=== PATIENT | female | born 1960 | race Caucasian/White ===

== ENCOUNTER 2016-06-11 09:31 | Emergency (ER) | payer OTHER ==
[~2016-06-11] VITALS: Ht 165.1 cm; Wt 78.0 kg
[~2016-06-11 09:31] MED LIST: ADVAI100I PO; ALBU8I INH; CLON1TAB PO; DUONI NEB; SPIRCAP INH; TRAZ300T2 PO
[2016-06-11 09:37] VITALS: BP 134/76; PULSE 83; RESP 17; TEMP 98.3; O2SAT 99
--- NOTE | 2016-06-11 10:05 | PD ---
HPI Chief Complaint: Fall Time Seen by Provider: 09:52 Travel History International Travel<30 days: No Contact w/Intl Traveler<30days: No Traveled to known affect area: No History of Present Illness HPI The patient was seen and examined in the presence of the nurse. This patient complains of pain in her right foot. 5 days ago she tripped and fell over a tree stump and injured her right foot. She has pain with weightbearing. She also hit her right low back on a table. Symptoms severity is moderate. No head injury. PFSH Past Medical History Arthritis: Yes Asthma: Yes Anxiety: Yes Depression: Yes Cancer: Yes (SKIN) Cardiovascular Problems: Yes High Cholesterol: Yes COPD: Yes Diminished Hearing: No Endocrine: No GERD: Yes Genitourinary: No Hypertension: Yes (states do not take meds) Immune Disorder: No Musculoskeletal: Yes (FX RIBS ) Psychiatric: Yes (PTSD) Reproductive: No Respiratory: Yes (copd) Immunizations Current: Yes Pneumonia: Yes Menopausal: Yes : 1 Para: 1 Past Surgical History Abdominal Surgery: Yes Appendectomy: Yes Gynecologic Surgery: Yes (hysterectomy) Hysterectomy: Yes Oral Surgery: Yes (TONSILECTOMY) Tonsillectomy: Yes Other Surgery: Yes (LT ARM SKIN CANCER) Social History Alcohol Use: Yes (occas. wine) Tobacco Use: Yes (1- 2ppd cigs) Substance Use: No Allergies-Medications (Allergen,Severity, Reaction): Coded Allergies: Codeine (Verified Allergy, Severe, HIVES, SOB, 06/11/16) Penicillin (Verified Allergy, Severe, HIVES, SOB, 06/11/16) Reported Meds & Prescriptions Reported Meds & Active Scripts Active Reported Spiriva Handihaler (Tiotropium Inh) 18 Mcg Cap 18 Mcg INH DAILY 1 capsule = 18 mcg Ventolin Hfa 18 GM Inh (Albuterol Sulfate) 90 Mcg/Act Aer 2 Puff INH Q4H PRN Clonazepam 1 Mg Tab 1 Mg PO TID Trazodone (Trazodone HCl) 100 Mg Tab 200 Mg PO HS Review of Systems General / Constitutional: No: Fever HENT: No: Headaches Cardiovascular: No: Chest Pain or Discomfort Respiratory: No: Shortness of Breath Physical Exam Narrative SKIN: Inspection shows no rash or ulcers. Palpation shows no induration or nodules. Psych: Normal mood and affect. Normal insight and judgment. Back: No midline tenderness. No bruising or swelling Right foot: There is a bit of ecchymosis at the proximal right fourth toe. There is some diffuse tenderness over the entire foot. No open wound. No ankle tenderness Data Data Last Documented VS Vital Signs Date Time Temp Pulse Resp B/P Pulse Ox O2 Delivery O2 Flow Rate FiO2 06/11/16 10:07 16 99 Room Air 06/11/16 09:37 98.3 83 134/76 Orders Foot, Complete ([id number]) (06/11/16 ) MDM Medical Decision Making Medical Screen Exam Complete: Yes Emergency Medical Condition: Yes Medical Record Reviewed: Yes Differential Diagnosis Foot fracture, contusion, sprain Narrative Course I have reviewed the patient's electronic medical record. She is a very frequent visitor for COPD I reviewed her right foot x-rays show fracture of the proximal fourth toe Doe taping was applied to the right fourth and third toe as well as postop shoe applied Recommend podiatry follow-up Diagnosis Primary Impression: Toe fracture, right Additional Instructions: Follow-up with podiatry Med/Other Pt SpecificInfo: Other Disposition: 01 DISCHARGE HOME Condition: Stable Sky Duarte MD Jun 11, 2016 10:05
[2016-06-11] MEDS ORDERED: TRAZ100T4 PO (10:10)
[2016-06-11] MEDS ORDERED: CLON1TAB PO (10:10)
--- NOTE | 2016-06-11 10:24 | RADHPO ---
EXAM DATE/TIME: 06/11/2016 10:07 [facility] COMPARISON: No previous studies available for comparison. INDICATIONS : Right foot/toe pain/bruising post stubbing them on a tree stump. MEDICAL HISTORY : Hypertension. Hypercholesterolemia. Chronic obstructive pulmonary disease. Asthma. GERD. Arthriti s. SURGICAL HISTORY : Appendectomy. Hysterectomy. Tonsillectomy. ENCOUNTER: Initial ACUITY: 4 - 6 days PAIN SCORE: 10/10 LOCATION: Right foot/toes FINDINGS: There is a nondisplaced transverse fracture at the base of the proximal phalanx of the fourth toe. No intra-articular extension is present. Joint spaces are maintained. An inferior calcaneal spur is pre sent. CONCLUSION: 1. Fracture proximal phalanx fourth toe Rad Casey MD on June 11, 2016 at 10:21 Board Certified Radiologist. This report was verified electronically.
[2016-06-11] MEDS ORDERED: SPIRCAP INH (10:35)
[2016-06-11] MEDS ORDERED: VENTAER INH (10:35)
== END 2016-06-11 11:20 | disposition home or self-care (01) ==
LOC: PHED 09:31
DX: S92.511A Displaced fracture of proximal phalanx of right lesser toe(s), initial encounter for closed fracture (principal); M19.90 Unspecified osteoarthritis, unspecified site; J44.9 Chronic obstructive pulmonary disease, unspecified; I10 Essential (primary) hypertension; F17.210 Nicotine dependence, cigarettes, uncomplicated; W18.09XA Striking against other object with subsequent fall, initial encounter
CPT/HCPCS: 73630; 99283; L3260

== ENCOUNTER 2016-08-11 17:30 | Emergency (ER) | payer OTHER ==
[~2016-08-11] VITALS: Ht 165.1 cm; Wt 78.1 kg
[~2016-08-11 17:30] MED LIST changes: -ADVAI100I PO; -ALBU8I INH; -DUONI NEB; +TRAZ100T4 PO; -TRAZ300T2 PO; +VENTAER INH
[2016-08-11 17:32] VITALS: BP 131/75; PULSE 104; RESP 16; TEMP 98.7; O2SAT 97
--- NOTE | 2016-08-11 18:39 | PD ---
HPI Chief Complaint: Skin Problem Time Seen by Provider: 18:35 Travel History International Travel<30 days: No Contact w/Intl Traveler<30days: No Traveled to known affect area: No History of Present Illness HPI 56-year-old female presents to the ED for evaluation 2 week history of pruritic rash. Patient states she first noticed on her back now spread to her abdomen, thighs. She thinks it might be scabies. She states that she has been washing her linens in hot water, but the rash has not improved. Denies fever, chills, cough or cold symptoms, abdominal pain, nausea, vomiting. PFSH Past Medical History Arthritis: Yes Asthma: Yes Anxiety: Yes Depression: Yes Cancer: Yes (SKIN) Cardiovascular Problems: Yes High Cholesterol: Yes COPD: Yes Diminished Hearing: No Endocrine: No GERD: Yes Genitourinary: No Hypertension: Yes (states do not take meds) Immune Disorder: No Musculoskeletal: Yes (FX RIBS ) Psychiatric: Yes (PTSD) Reproductive: No Respiratory: Yes (copd) Immunizations Current: Yes Pneumonia: Yes Influenza Vaccination: Yes ?: Not Menopausal: Yes : 1 Para: 1 Past Surgical History Abdominal Surgery: Yes Appendectomy: Yes Gynecologic Surgery: Yes (hysterectomy) Hysterectomy: Yes Oral Surgery: Yes (TONSILECTOMY) Tonsillectomy: Yes Other Surgery: Yes (LT ARM SKIN CANCER) Social History Alcohol Use: Yes (RARELY) Tobacco Use: Yes (1/2 PPD ) Substance Use: No Allergies-Medications (Allergen,Severity, Reaction): Coded Allergies: Codeine (Verified Allergy, Severe, HIVES, SOB, 08/11/16) Penicillin (Verified Allergy, Severe, HIVES, SOB, 08/11/16) Reported Meds & Prescriptions Reported Meds & Active Scripts Active Permethrin Topical (Permethrin) 5% Cream 1 Applic TOPICAL ONCE apply head to toe and leave on for 8-14 hours before washing off. Treat a second time 1 week following first treatment. Reported Clonazepam 1 Mg Tab 1 Mg PO TID Trazodone (Trazodone HCl) 100 Mg Tab 200 Mg PO HS Review of Systems Except as stated in HPI: all other systems reviewed are Neg Physical Exam Narrative GENERAL: Well-nourished, well-developed white female in no acute distress. SKIN: Warm and dry. Erythematous maculopapular blanching rash distributed around the waist, on the back, tops of the thighs, interdigital spaces. Consistent with scabies. HEAD: Normocephalic. EYES: No scleral icterus. No injection or drainage. NECK: Supple, trachea midline. No JVD or lymphadenopathy. CARDIOVASCULAR: Regular rate and rhythm without murmurs, gallops, or rubs. RESPIRATORY: Breath sounds equal bilaterally. No accessory muscle use. GASTROINTESTINAL: Abdomen soft, non-tender, nondistended. MUSCULOSKELETAL: No cyanosis, or edema. BACK: Nontender without obvious deformity. No CVA tenderness. Data Data Last Documented VS Vital Signs Date Time Temp Pulse Resp B/P Pulse Ox O2 Delivery O2 Flow Rate FiO2 08/11/16 17:54 104 16 08/11/16 17:32 98.7 131/75 97 Orders Hydroxyzine Hcl Inj (Vistaril Inj) (08/11/16 19:00) MDM Medical Decision Making Medical Screen Exam Complete: Yes Emergency Medical Condition: Yes Differential Diagnosis scabies versus bedbugs versus contact dermatitis versus insect bites versus other Narrative Course 56-year-old female presents to the ED for evaluation 2 week history of pruritic rash. Patient states she first noticed on her back now spread to her abdomen, thighs. She thinks it might be scabies. Vitals reviewed. Physical exam reveals linens in hot water, but the rash has not improved. Denies fever, chills, cough or cold symptoms, abdominal pain, nausea, vomiting. Erythematous maculopapular blanching rash distributed around the waist, on the back, tops of the thighs, interdigital spaces. Consistent with scabies. She was prescribed permethrin, instructed in its proper use. She was administered a dose of IM Vistaril before discharge. She is instructed to treat twice at 7 day interval, follow-up with primary care. She indicated understanding of instructions. She is stable and discharged home. Diagnosis Primary Impression: Scabies infestation Referrals: Primary Care Physician Patient Instructions: General Instructions, Scabies (ED) Additional Instructions: Lukewarm showers to avoid worsening of itching. Apply permethrin cream head to toe and leave on for 8-14 hours before washing off. Apply a second treatment in one week. Itching may last 4-5 days after treatment. Follow-up with the primary care provider. Return to the ED for any urgent or emergent medical condition. Med/Other Pt SpecificInfo: Prescription(s) given Scripts Permethrin Topical 5% Cream1 Applic TOPICAL ONCE #4 TUBE Ref 0 apply head to toe and leave on for 8-14 hours before washing off. Treat a second time 1 week following first treatment. Prov:Yuri Almonte MD 08/11/16 Disposition: 01 DISCHARGE HOME Condition: Stable Ela Haddad Aug 11, 2016 18:39
[2016-08-11] MEDS ORDERED: PERM5CRE TOPICAL (18:41)
[2016-08-11] MEDS ORDERED: hydrOXYzine HCL 50 MG/ML VIAL IM ONE (19:00)
== END 2016-08-11 18:58 | disposition home or self-care (01) ==
LOC: PHEFT 17:30
DX: B86 Scabies (principal); E78.00 Pure hypercholesterolemia, unspecified; J44.9 Chronic obstructive pulmonary disease, unspecified; F17.210 Nicotine dependence, cigarettes, uncomplicated
CPT/HCPCS: 99282; J3410

== ENCOUNTER 2016-09-11 09:54 | Emergency (ER) | payer OTHER ==
[~2016-09-11] VITALS: Ht 165.1 cm; Wt 77.4 kg
[~2016-09-11 09:54] MED LIST changes: +PERM5CRE TOPICAL; -SPIRCAP INH; -VENTAER INH
[2016-09-11 10:08] VITALS: BP 119/77; PULSE 110; RESP 26; TEMP 98.4; O2SAT 100
--- NOTE | 2016-09-11 10:28 | PD ---
HPI Chief Complaint: Respiratory Symptoms Time Seen by Provider: 10:22 Travel History International Travel<30 days: No Contact w/Intl Traveler<30days: No Traveled to known affect area: No History of Present Illness HPI This 56-year-old female is complaining of shortness of breath. She has a history of COPD. 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 She has smoked 5 cigarettes a day area she has been coughing and has been short of breath for several days. She is not on any medication at this time. She has no history of heart disease PFSH Past Medical History Arthritis: Yes Asthma: Yes Anxiety: Yes Depression: Yes Cancer: Yes (SKIN) Cardiovascular Problems: Yes High Cholesterol: Yes COPD: Yes Diminished Hearing: No Endocrine: No GERD: Yes Genitourinary: No Hypertension: Yes (states do not take meds) Immune Disorder: No Musculoskeletal: Yes (FX RIBS ) Psychiatric: Yes (PTSD) Reproductive: No Respiratory: Yes (copd) Immunizations Current: Yes Pneumonia: Yes ?: Not Menopausal: Yes : 1 Para: 1 Past Surgical History Abdominal Surgery: Yes Appendectomy: Yes Gynecologic Surgery: Yes (hysterectomy) Hysterectomy: Yes Oral Surgery: Yes (TONSILECTOMY) Tonsillectomy: Yes Other Surgery: Yes (LT ARM SKIN CANCER) Social History Alcohol Use: Yes (RARELY) Tobacco Use: Yes (1/2 PPD ) Substance Use: No Allergies-Medications (Allergen,Severity, Reaction): Coded Allergies: Codeine (Verified Allergy, Severe, HIVES, SOB, 09/11/16) Penicillin (Verified Allergy, Severe, HIVES, SOB, 09/11/16) Reported Meds & Prescriptions Reported Meds & Active Scripts Active Reported Clonazepam 1 Mg Tab 1 Mg PO TID Trazodone (Trazodone HCl) 100 Mg Tab 200 Mg PO HS Review of Systems General / Constitutional: No: Fever, Chills Eyes: No: Diploplia, Blurred Vision HENT: No: Headaches, Vertigo Cardiovascular: No: Chest Pain or Discomfort Respiratory: Positive: Cough, Shortness of Breath Gastrointestinal: No: Vomiting, Diarrhea Genitourinary: No: Urgency Musculoskeletal: No: Myalgias Skin: No Rash Physical Exam Narrative GENERAL: Well-developed female SKIN: Focused skin assessment warm/dry. HEAD: Atraumatic. Normocephalic. EYES: Pupils equal and round. No scleral icterus. No injection or drainage. ENT: No nasal bleeding or discharge. Mucous membranes pink and moist. NECK: Trachea midline. No JVD. CARDIOVASCULAR: Regular rate and rhythm. No murmur appreciated. RESPIRATORY: Bilateral expiratory rhonchi and occasional wheezes GASTROINTESTINAL: Abdomen soft, non-tender, nondistended. Hepatic and splenic margins not palpable. MUSCULOSKELETAL: No obvious deformities. No clubbing. No cyanosis. No edema. NEUROLOGICAL: Awake and alert. No obvious cranial nerve deficits. Motor grossly within normal limits. Normal speech. PSYCHIATRIC: Appropriate mood and affect; insight and judgment normal. Data Data Last Documented VS Vital Signs Date Time Temp Pulse Resp B/P Pulse Ox O2 Delivery O2 Flow Rate FiO2 09/11/16 11:25 18 97 Room Air 09/11/16 11:25 98.4 85 127/69 09/11/16 10:55 21 Orders Complete Blood Count With Diff (09/11/16 10:26) Basic Metabolic Panel (Bmp) (09/11/16 10:26) B-Type Natriuretic Peptide (09/11/16 10:26) Troponin I (09/11/16 10:26) Iv Access Insert/Monitor (09/11/16 10:26) Electrocardiogram (09/11/16 10:26) Ecg Monitoring (09/11/16 10:26) Oximetry (09/11/16 10:26) Oxygen Administration (09/11/16 10:26) Chest, Single Ap (09/11/16 10:26) Sodium Chloride 0.9% Flush (Ns Flush) (09/11/16 10:30) Methylprednisolone So Succ Inj (Solumedr (09/11/16 10:30) Albuterol-Ipratropium Neb (Duoneb Neb) (09/11/16 10:30) Labs Laboratory Tests Test 09/11/16 09/11/16 10:42 11:25 White Blood Count 7.0 TH/MM3 Red Blood Count 4.78 MIL/MM3 Hemoglobin 13.9 GM/DL Hematocrit 40.2 % Mean Corpuscular Volume 84.0 FL Mean Corpuscular Hemoglobin 29.1 PG Mean Corpuscular Hemoglobin 34.6 % Concent Red Cell Distribution Width 12.0 % Platelet Count 261 TH/MM3 Mean Platelet Volume 7.1 FL Neutrophils (%) (Auto) 67.4 % Lymphocytes (%) (Auto) 23.9 % Monocytes (%) (Auto) 4.0 % Eosinophils (%) (Auto) 1.6 % Basophils (%) (Auto) 3.1 % Neutrophils # (Auto) 4.7 TH/MM3 Lymphocytes # (Auto) 1.7 TH/MM3 Monocytes # (Auto) 0.3 TH/MM3 Eosinophils # (Auto) 0.1 TH/MM3 Basophils # (Auto) 0.2 TH/MM3 CBC Comment DIFF FINAL Differential Comment B-Type Natriuretic Peptide 6 PG/ML Sodium Level 144 MEQ/L Potassium Level 3.6 MEQ/L Chloride Level 110 MEQ/L Carbon Dioxide Level 26.4 MEQ/L Anion Gap 8 MEQ/L Blood Urea Nitrogen 14 MG/DL Random Glucose 88 MG/DL Calcium Level 8.2 MG/DL [facility] Medical Decision Making Medical Screen Exam Complete: Yes Emergency Medical Condition: Yes Medical Record Reviewed: Yes Differential Diagnosis Differential includes acute bronchitis, pneumonia, COPD exacerbation Narrative Course Chest x-ray is negative for pneumonia. Patient has a COPD exacerbation. She is given repeated nebulizer treatments and Solu-Medrol. She'll be released with prednisone, Keflex and albuterol Diagnosis Primary Impression: Chronic obstructive pulmonary disease with acute exacerbation Scripts Albuterol 18 GM Inh (Ventolin Hfa 18 GM Inh)90 Mcg/Act Aer2 Puff INH Q4-6H PRN ( SHORTNESS OF BREATH) #1 INHALER Ref 0 Prov:Cleveland Concepcion MD 09/11/16 Prednisone 20 Mg Tab20 Mg PO DIRECTED #24 TAB Ref 0 Take 60 MG daily x 4 days, then 40 MG x 4 days, then 20 MG daily x 4 days. Prov:Cleveland Concepcion MD 09/11/16 Cephalexin (Keflex)500 Mg Inf801 Mg PO Q6H #28 CAP Ref 0 Prov:Cleveland Concepcion MD 09/11/16 Disposition: 01 DISCHARGE HOME Condition: Stable Cleveland Concepcion MD Sep 11, 2016 10:28
[2016-09-11 10:30] VITALS: RESP 16; O2SAT 98
[2016-09-11] MEDS ORDERED: SODIUM CHLORIDE 0.9% FLUSH 10 ML FLUSH IVF PRN (10:30)
[2016-09-11] MEDS ORDERED: methylPREDNISolone SOD SUCC 125 MG/2 ML VIAL IVP ONE (10:30)
[2016-09-11] MEDS: RESP: ALBUTEROL 2.5 MG/IPRATROPIUM 0.5 MG NEB (SCH) INH ×2 (10:43→10:44)
[2016-09-11 10:47] LABS: AUTOMATED NEUTROPHIL # 4.7 TH/MM3 (1.8-7.7); BASOPHIL # 0.2 TH/MM3 (0-0.2); BASOPHIL % 3.1 % (0.0-2.0); EOSINOPHIL # 0.1 TH/MM3 (0-0.4); EOSINOPHIL % 1.6 % (0.0-4.0); HEMATOCRIT 40.2 % (35.0-46.0); HEMO FLAGS DIFF FINAL; LYMPH % 23.9 % (9.0-44.0); LYMPHOCYTE # 1.7 TH/MM3 (1.0-4.8); MEAN CORPUSCULAR HEMOGLOBIN 29.1 PG (27.0-34.0); MEAN CORPUSCULAR HGB CONC 34.6 % (32.0-36.0); NEUT % 67.4 % (16.0-70.0); PLATELET COUNT 261 TH/MM3 (150-450); RED BLOOD COUNT 4.78 MIL/MM3 (4.00-5.30)
[2016-09-11 10:55] VITALS: O2SAT 97
--- NOTE | 2016-09-11 11:05 | RADHPO ---
EXAM DATE/TIME: 09/11/2016 10:43 [facility] COMPARISON: CHEST SINGLE AP, March 14, 2016, 8:08. INDICATIONS : Short of breath. MEDICAL HISTORY : Hypertension. Hypercholesterolemia. Cholelithiasis. Asthma. GERD. Fractured ribs. Arthritis. SURGICAL HISTORY : Tonsillectomy. Appendectomy. Hysterectomy. Skin cancer removed from left arm. ENCOUNTER: Initial ACUITY: 1 day PAIN SCORE: 0/10 LOCATION: chest FINDINGS: A single view of the chest demonstrates the lungs to be symmetrically aerated without evidence of mas s, infiltrate or effusion. The cardiomediastinal contours are unremarkable. Osseous structures are intact. CONCLUSION: No acute disease. Yuri Leahy MD on September 11, 2016 at 11:03 Board Certified Radiologist. This report was verified electronically.
[2016-09-11 11:25] VITALS: BP 127/69; PULSE 85; RESP 18; TEMP 98.4; O2SAT 97
[2016-09-11 11:49] LABS: CHLORIDE 110 MEQ/L (98-107); POTASSIUM 3.6 MEQ/L (3.5-5.1); SODIUM (NA) 144 MEQ/L (136-145)
[2016-09-11 11:51] LABS: ANION GAP 8 MEQ/L (5-15); BICARBONATE 26.4 MEQ/L (21.0-32.0)
[2016-09-11 11:52] LABS: BLOOD UREA NITROGEN 14 MG/DL (7-18)
[2016-09-11 11:55] LABS: GLOMERULAR FILTRATION RATE 96 ML/MIN (>89)
[2016-09-11] MEDS ORDERED: CEPH-460 PO (11:58)
[2016-09-11] MEDS ORDERED: VENTAER INH (11:58)
[2016-09-11] MEDS ORDERED: PRED20 PO (11:58)
[2016-09-11] MEDS ORDERED: ALBU0.08 NEB (12:11)
--- NOTE | 2016-09-12 18:50 | EKG ---
Date Performed: 09/11/2016 Time Performed: 10:26:50 PTAGE: 56 years EKG: Sinus rhythm Compared to prior tracing no significant change Normal ECG PREVIOUS TRACING : 03/14/2016 07.43 DOCTOR: Jaison Antonio Interpretating Date/Time 09/12/2016 18:49:24
== END 2016-09-11 12:10 | disposition home or self-care (01) ==
LOC: PHED 09:54
DX: J44.1 Chronic obstructive pulmonary disease with (acute) exacerbation (principal); F17.210 Nicotine dependence, cigarettes, uncomplicated; J45.909 Unspecified asthma, uncomplicated; E78.00 Pure hypercholesterolemia, unspecified; I10 Essential (primary) hypertension; K21.9 Gastro-esophageal reflux disease without esophagitis
CPT/HCPCS: 71010; 80048; 83880; 84484; 85025; 93005; 94640; 94664; 96374; 99285; J2930

== ENCOUNTER 2016-12-13 08:25 | Emergency (ER) | payer OTHER ==
[~2016-12-13] VITALS: Ht 165.1 cm; Wt 76.5 kg
[~2016-12-13 08:25] MED LIST changes: +ALBU0.08 NEB; +CEPH-460 PO; -PERM5CRE TOPICAL; +PRED20 PO; +VENTAER INH
[2016-12-13 08:31] VITALS: BP 135/73; PULSE 85; RESP 18; TEMP 98.6; O2SAT 97
[2016-12-13 08:34] VITALS: BP 135/73; PULSE 85; RESP 16; TEMP 98.6; O2SAT 100
[2016-12-13] MEDS ORDERED: KETOROLAC TROMETHAMINE 30 MG/ML (IVP) VIAL IV PUSH ONE (08:45)
[2016-12-13] MEDS ORDERED: PROCHLORPERAZINE INJ 10 MG/2 ML VIAL IV PUSH ONE (08:45)
[2016-12-13] MEDS ORDERED: TRAZ100T6 PO (08:53)
[2016-12-13] MEDS ORDERED: PROC1INJ IM (08:53)
--- NOTE | 2016-12-13 08:55 | PD ---
HPI Chief Complaint: GI Complaint Time Seen by Provider: 08:39 Travel History International Travel<30 days: No Contact w/Intl Traveler<30days: No Traveled to known affect area: No History of Present Illness HPI Patient is a 56 year old female, with history of breast cancer, who comes in complaining of diarrhea and a headache. She says she received her first chemo treatment two weeks ago and since then she has been having multiple episodes of diarrhea. She says also since then she has had a right sided headache. She says the headache started after receiving injections to boost her immune system. She denies any fever or chills. She has not had nausea or vomiting. She denies any abdominal pain. She says she took some Imodium last night, but this just made her feel dizzy. PFSH Past Medical History Arthritis: Yes Asthma: Yes Anxiety: Yes Depression: Yes Cancer: Yes (SKIN) Cardiovascular Problems: Yes High Cholesterol: Yes Chemotherapy: Yes COPD: Yes Diminished Hearing: No Endocrine: No GERD: Yes Genitourinary: No Hypertension: Yes (states do not take meds) Immune Disorder: No Musculoskeletal: Yes (FX RIBS ) Psychiatric: Yes (PTSD) Reproductive: No Respiratory: Yes (copd) Immunizations Current: Yes Pneumonia: Yes Tetanus Vaccination: < 5 Years Influenza Vaccination: Yes ?: Not Menopausal: Yes : 1 Para: 1 Past Surgical History Abdominal Surgery: Yes Appendectomy: Yes Gynecologic Surgery: Yes (hysterectomy) Hysterectomy: Yes Oral Surgery: Yes (TONSILECTOMY) Tonsillectomy: Yes Other Surgery: Yes (LT ARM SKIN CANCER) Social History Alcohol Use: Yes (RARELY) Tobacco Use: No (1/2 PPD ) Substance Use: No Allergies-Medications (Allergen,Severity, Reaction): Coded Allergies: Codeine (Verified Allergy, Severe, HIVES, SOB, 12/13/16) Penicillin (Verified Allergy, Severe, HIVES, SOB, 12/13/16) Reported Meds & Prescriptions Reported Meds & Active Scripts Active Albuterol Neb (Albuterol Sulfate) 2.5 Mg/3 Ml Neb 2.5 Mg NEB TID NEB PRN Ventolin Hfa 18 GM Inh (Albuterol Sulfate) 90 Mcg/Act Aer 2 Puff INH Q4-6H PRN Reported Prochlorperazine Edisylate Inj (Prochlorperazine Edisylate) 5 Mg/Ml Inj 10 Mg IM ONCE Trazodone (Trazodone HCl) 100 Mg Tablet 100 Mg PO HS Clonazepam 1 Mg Tab 1 Mg PO TID Review of Systems Except as stated in HPI: all other systems reviewed are Neg General / Constitutional: No: Fever, Chills Eyes: No: Blurred Vision HENT: Positive: Headaches Cardiovascular: No: Chest Pain or Discomfort Respiratory: No: Shortness of Breath Gastrointestinal: Positive: Diarrhea, No: Nausea, Vomiting, Abdominal Pain Genitourinary: No: Dysuria Musculoskeletal: No: Myalgias Skin: No Rash, No Change in Pigmentation Neurologic: Positive: Dizziness Physical Exam Narrative GENERAL: Awake and alert, in no acute distress. SKIN: Focused skin assessment warm/dry. HEAD: Atraumatic. Normocephalic. EYES: Pupils equal and round. No scleral icterus. EOMI. ENT: Mucous membranes pink and moist. NECK: Trachea midline. No JVD. CARDIOVASCULAR: Regular rate and rhythm. No murmur appreciated. RESPIRATORY: No accessory muscle use. Clear to auscultation. Breath sounds equal bilaterally. GASTROINTESTINAL: Abdomen soft, non-tender, nondistended. MUSCULOSKELETAL: No obvious deformities. No clubbing. No cyanosis. No edema. NEUROLOGICAL: Awake and alert. No obvious cranial nerve deficits. Motor grossly within normal limits. Normal speech. PSYCHIATRIC: Appropriate mood and affect; insight and judgment normal. Data Data Last Documented VS Vital Signs Date Time Temp Pulse Resp B/P Pulse Ox O2 Delivery O2 Flow Rate FiO2 12/13/16 10:10 67 16 96/64 100 Room Air 12/13/16 08:34 98.6 Orders Complete Blood Count With Diff (12/13/16 08:45) Comprehensive Metabolic Panel (12/13/16 08:45) Iv Access Insert/Monitor (12/13/16 08:45) Ketorolac Inj (Toradol Inj) (12/13/16 08:45) Urinalysis - C+S If Indicated (12/13/16 08:45) Prochlorperazine Inj (Compazine Inj) (12/13/16 08:45) Urine Culture (12/13/16 09:57) Sodium Chlorid 0.9% 500 Ml Inj (Ns 500 M (12/13/16 10:30) Labs Laboratory Tests Test 12/13/16 12/13/16 08:50 09:57 White Blood Count 15.9 TH/MM3 Red Blood Count 4.31 MIL/MM3 Hemoglobin 12.5 GM/DL Hematocrit 36.9 % Mean Corpuscular Volume 85.7 FL Mean Corpuscular Hemoglobin 29.0 PG Mean Corpuscular Hemoglobin 33.9 % Concent Red Cell Distribution Width 12.1 % Platelet Count 199 TH/MM3 Mean Platelet Volume 7.1 FL Neutrophils (%) (Auto) 83.6 % Lymphocytes (%) (Auto) 11.1 % Monocytes (%) (Auto) 4.9 % Eosinophils (%) (Auto) 0.2 % Basophils (%) (Auto) 0.2 % Neutrophils # (Auto) 13.4 TH/MM3 Lymphocytes # (Auto) 1.8 TH/MM3 Monocytes # (Auto) 0.8 TH/MM3 Eosinophils # (Auto) 0.0 TH/MM3 Basophils # (Auto) 0.0 TH/MM3 CBC Comment DIFF FINAL Differential Comment Sodium Level 141 MEQ/L Potassium Level 4.0 MEQ/L Chloride Level 107 MEQ/L Carbon Dioxide Level 25.2 MEQ/L Anion Gap 9 MEQ/L Blood Urea Nitrogen 11 MG/DL Creatinine 0.64 MG/DL Estimat Glomerular Filtration 96 ML/MIN Rate Random Glucose 97 MG/DL Calcium Level 8.7 MG/DL Total Bilirubin 0.3 MG/DL Aspartate Amino Transf 18 U/L (AST/SGOT) Alanine Aminotransferase 23 U/L (ALT/SGPT) Alkaline Phosphatase 107 U/L Total Protein 6.8 GM/DL Albumin 3.7 GM/DL Urine Collection Type CATH Urine Color YELLOW Urine Turbidity SLIGHT Urine pH 6.0 Urine Specific [place] 1.016 Urine Protein NEG mg/dL Urine Glucose (UA) NEG mg/dL Urine Ketones NEG mg/dL Urine Occult Blood NEG Urine Nitrite NEG Urine Bilirubin NEG Urine Leukocyte Esterase NEG Urine WBC 0-2 /hpf Urine Squamous Epithelial 6-8 /hpf Cells Urine Amorphous Sediment MOD Urine Bacteria MOD /hpf Microscopic Urinalysis Comment CULTURE INDICATED Urine Collection Time 0957 MDM Medical Decision Making Medical Screen Exam Complete: Yes Emergency Medical Condition: Yes Medical Record Reviewed: Yes Differential Diagnosis dehydration vs electrolyte abnormalities vs diarrhea vs uti Narrative Course Patient is a 56-year-old female comes in complaining of diarrhea and a headache. Exam shows no abdominal tenderness, no neurologic abnormalities. IV established, labs sent. Labs showed elevated white blood cell count of 15.9 as well as bacteria in the urine. Patient given IV fluids, Toradol, Compazine. Based on her clinical picture as well as elevated white blood cell count and bacteria, patient will be discharged with Cipro and Flagyl. She is advised follow-up with her doctors. Advised to drink plenty of fluids. Advised to return to the emergency department as needed for any worsening symptoms. Diagnosis Primary Impression: Urinary tract infection Qualified Code: N30.00 - Acute cystitis without hematuria Additional Impression: Colitis Patient Instructions: Colitis (ED), General Instructions, Urinary Tract Infection in Women (ED) Additional Instructions: Take all of your antibiotics. Do not drink alcohol while taking these antibiotics. Drink plenty of fluids. Follow-up with your doctors. Return to the emergency department as needed for any worsening symptoms. Scripts Metronidazole (Flagyl)500 Mg Sob956 Mg PO TID 7 Days Ref 0 Prov:Nias Medina MD 12/13/16 Ciprofloxacin (Cipro)500 Mg Ddt660 Mg PO BID 7 Days Ref 0 Prov:Nisa Medina MD 12/13/16 Disposition: 01 DISCHARGE HOME Condition: Stable Nisa Medina MD Dec 13, 2016 08:55
[2016-12-13 09:02] LABS: AUTOMATED NEUTROPHIL # 13.4 TH/MM3 (1.8-7.7); BASOPHIL % 0.2 % (0.0-2.0); EOSINOPHIL % 0.2 % (0.0-4.0); HEMATOCRIT 36.9 % (35.0-46.0); LYMPH % 11.1 % (9.0-44.0); LYMPHOCYTE # 1.8 TH/MM3 (1.0-4.8); MEAN CELL VOLUME 85.7 FL (80.0-100.0); MEAN CORPUSCULAR HGB CONC 33.9 % (32.0-36.0); MONO % 4.9 % (0.0-8.0); NEUT % 83.6 % (16.0-70.0); PLATELET COUNT 199 TH/MM3 (150-450); RED BLOOD COUNT 4.31 MIL/MM3 (4.00-5.30); RED CELL DISTRIBUTION WIDTH 12.1 % (11.6-17.2); WHITE BLOOD COUNT 15.9 TH/MM3 (4.0-11.0)
[2016-12-13 09:04] LABS: HEMO FLAGS DIFF FINAL
[2016-12-13 09:07] LABS: CHLORIDE 107 MEQ/L (98-107); SODIUM (NA) 141 MEQ/L (136-145)
[2016-12-13 09:10] LABS: ANION GAP 9 MEQ/L (5-15); BICARBONATE 25.2 MEQ/L (21.0-32.0)
[2016-12-13 09:11] LABS: BLOOD UREA NITROGEN 11 MG/DL (7-18)
[2016-12-13 09:13] LABS: ALT (GPT) 23 U/L (10-53)
[2016-12-13 09:14] LABS: AST (GOT) 18 U/L (15-37); GLOMERULAR FILTRATION RATE 96 ML/MIN (>89)
[2016-12-13 09:15] LABS: TOTAL BILIRUBIN ADULT 0.3 MG/DL (0.2-1.0)
[2016-12-13 09:16] LABS: ALKALINE PHOSPHATASE 107 U/L (45-117)
[2016-12-13 10:02] LABS: BLOOD, URINE NEG (NEG); GLUCOSE,URINE NEG (NEG); KETONE, URINE NEG (NEG); NITRITE,URINE NEG (NEG)
[2016-12-13 10:08] LABS: METHOD OF COLLECTION CATH; URINE COLOR YELLOW (YELLW/STRAW)
[2016-12-13 10:09] LABS: BACTERIA, URINE MOD /hpf; COMMENT (UR) CULTURE INDICATED; COMMENT2 (UR) MUCOUS PRESENT; CULTURE IF INDICATED CULTURE INDICATED; WBC, URINE 0-2 /hpf (0-5)
[2016-12-13 10:10] VITALS: BP 96/64; PULSE 67; RESP 16; O2SAT 100
[2016-12-13] MEDS ORDERED: CIPR-9 PO (10:29)
[2016-12-13] MEDS ORDERED: METR-1 PO (10:29)
[2016-12-13] MEDS ORDERED: SODIUM CHLORID 0.9% 500 ML INJ 500 ML IV ONE ×2 (10:30→11:15)
[2016-12-13 11:08] VITALS: BP 97/70; PULSE 76; RESP 16; O2SAT 100
== END 2016-12-13 12:01 | disposition home or self-care (01) ==
LOC: PHED 08:25
DX: N30.00 Acute cystitis without hematuria (principal); K52.9 Noninfective gastroenteritis and colitis, unspecified; I10 Essential (primary) hypertension; E78.00 Pure hypercholesterolemia, unspecified; J44.9 Chronic obstructive pulmonary disease, unspecified; F43.10 Post-traumatic stress disorder, unspecified; F17.210 Nicotine dependence, cigarettes, uncomplicated
CPT/HCPCS: 80053; 81001; 85025; 87086; 96361; 96374; 96375; 99284; J0780; J1885; J7040

== ENCOUNTER 2017-02-02 12:37 | Emergency (ER) | payer MEDICARE, OTHER ==
[~2017-02-02] VITALS: Ht 165.1 cm; Wt 74.5 kg
[~2017-02-02 12:37] MED LIST changes: -CEPH-460 PO; +CIPR-9 PO; +METR-1 PO; -PRED20 PO; +PROC1INJ IM; -TRAZ100T4 PO; +TRAZ100T6 PO
[2017-02-02 12:50] VITALS: BP 105/66; PULSE 92; RESP 20
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
[2017-02-02 13:00] VITALS: O2SAT 98
[2017-02-02] MEDS ORDERED: LORazepam 2 MG/ML VIAL IV PUSH ONE (13:00)
[2017-02-02] MEDS ORDERED: SODIUM CHLORIDE 0.9% FLUSH 10 ML FLUSH IVF PRN (13:00)
[2017-02-02 13:08] VITALS: O2SAT 95
[2017-02-02] MEDS: RESP: ALBUTEROL 2.5 MG/IPRATROPIUM 0.5 MG NEB (SCH) INH (13:08)
[2017-02-02 13:18] LABS: BLOOD GAS VENOUS BASE EXCESS 1.4 mmol/L (-2-2); BLOOD GAS VENOUS HCO3 25 mmol/L (22-26); BLOOD GAS VENOUS O2 CONTENT 10.3 Vol % (9.0-17.0); BLOOD GAS VENOUS O2 HGB SAT 80 % (70-76); BLOOD GAS VENOUS PCO2 35 mmHg (44-48); BLOOD GAS VENOUS PO2 47 mmHg (35-40); BLOOD GAS VENOUS pH 7.46 (7.360-7.400); CRITICAL VALUE NO; DRAW SITE RT BRACHIAL; FIO2 28 %; LITER FLOW 2 L/M; OXYGEN DEVICE NASAL CANNULA; STAT YES; TEMP CORR TO 98.6
--- NOTE | 2017-02-02 13:41 | RADRPT ---
EXAM DATE/TIME: 02/02/2017 13:10 [facility] COMPARISON: CHEST SINGLE AP, September 11, 2016, 10:43. INDICATIONS : Short of breath & chest pain. MEDICAL HISTORY : Hypertension. Chronic obstructive pulmonary disease. Carcinoma, breast. GERD. Skin CA. SURGICAL HISTORY : Appendectomy. Hysterectomy. Infusaport placement. ENCOUNTER: Initial ACUITY: 2 days PAIN SCORE: 8/10 LOCATION: chest FINDINGS: A single view of the chest demonstrates the lungs to be symmetrically aerated without evidence of mas s, infiltrate or effusion. There is a left [id number] in place and a left subclavian approach wit h the tip overlying the SVC. The cardiomediastinal contours are unremarkable. Osseous structures are intact. CONCLUSION: No acute disease. Gino Rossi MD on February 02, 2017 at 13:40 Board Certified Radiologist. This report was verified electronically.
[2017-02-02 13:51] LABS: POTASSIUM 3.6 MEQ/L (3.5-5.1)
[2017-02-02 13:56] LABS: BICARBONATE 25.2 MEQ/L (21.0-32.0)
[2017-02-02 14:02] LABS: BASOPHIL # 0.1 TH/MM3 (0-0.2); BASOPHIL % 0.6 % (0.0-2.0); EOSINOPHIL % 0.2 % (0.0-4.0); HEMO FLAGS DIFF FINAL; LYMPH % 9.1 % (9.0-44.0); LYMPHOCYTE # 0.8 TH/MM3 (1.0-4.8); MEAN CELL VOLUME 89.4 FL (80.0-100.0); MEAN CORPUSCULAR HEMOGLOBIN 30.5 PG (27.0-34.0); MEAN CORPUSCULAR HGB CONC 34.1 % (32.0-36.0); MONO % 5.6 % (0.0-8.0); NEUT % 84.5 % (16.0-70.0); PLATELET COUNT 346 TH/MM3 (150-450); RED BLOOD COUNT 3.03 MIL/MM3 (4.00-5.30); RED CELL DISTRIBUTION WIDTH 15.8 % (11.6-17.2); WHITE BLOOD COUNT 8.4 TH/MM3 (4.0-11.0)
[2017-02-02 14:21] VITALS: BP 118/54; PULSE 82; RESP 18; O2SAT 96
[2017-02-02] MEDS ORDERED: MEDR4PAK PO (14:28)
[2017-02-02] MEDS ORDERED: CLON1TAB PO (14:28)
[2017-02-02] MEDS ORDERED: ZOFR4TAB3 SL (14:28)
[2017-02-02] MEDS ORDERED: VENTAER INH (14:28)
[2017-02-02] MEDS ORDERED: TRAZ100T6 PO (14:28)
[2017-02-06] MEDS ORDERED: TRAM50TA PO (13:57)
== END 2017-02-02 15:25 | disposition home or self-care (01) ==
LOC: PHEFT 12:37
DX: J44.1 Chronic obstructive pulmonary disease with (acute) exacerbation (principal); I10 Essential (primary) hypertension; Z88.0 Allergy status to penicillin; Z85.828 Personal history of other malignant neoplasm of skin
CPT/HCPCS: 71010; 80048; 82805; 83735; 85025; 94640; 94664; 96374; 99284; J2060

== ENCOUNTER 2017-02-18 13:02 | Emergency (ER) | payer OTHER, MEDICAID ==
[~2017-02-18] VITALS: Ht 165.1 cm; Wt 77.6 kg
[~2017-02-18 13:02] MED LIST changes: -CIPR-9 PO; -METR-1 PO; -PROC1INJ IM; +TRAM50TA PO; +ZOFR4TAB3 SL
[2017-02-18 13:05] VITALS: BP 143/71; PULSE 77; RESP 20; TEMP 99; O2SAT 97
[2017-02-18] MEDS ORDERED: TETANUS/DIPHTHERIA TOXOID ADULT 0.5 ML VIAL IM ONE (13:30)
[2017-02-18] MEDS ORDERED: BACT800T5 PO (13:32)
--- NOTE | 2017-02-18 13:38 | PD ---
HPI Chief Complaint: Laceration/Skin Injury Time Seen by Provider: 13:15 Travel History International Travel<30 days: No Contact w/Intl Traveler<30days: No Traveled to known affect area: No History of Present Illness HPI 57-year-old female presents to the emergency room for tetanus prophylaxis. Patient receives chemotherapy for breast cancer and was receiving infusion just prior to arrival. She was talking to her oncologist, Dr. Jovan cShneider, who recommended she come to the emergency room because she stepped on a nayely nail yesterday. Patient states the nail went through her flip-flop. She reports moderate pain for which she took half of a Percocet. She denies any drainage. No fever, chills. No history of diabetes. She next sees Dr. Schneider on March 03. PFSH Past Medical History Arthritis: Yes Asthma: Yes Anxiety: Yes Depression: Yes Cancer: Yes (SKIN, r breast cancer) Cardiovascular Problems: Yes High Cholesterol: Yes Chemotherapy: Yes COPD: Yes Diminished Hearing: No Endocrine: No GERD: Yes Genitourinary: No Hypertension: Yes (states do not take meds) Immune Disorder: No Musculoskeletal: Yes (FX RIBS ) Psychiatric: Yes (PTSD) Reproductive: No Respiratory: Yes (copd) Immunizations Current: Yes Pneumonia: Yes Menopausal: Yes : 1 Para: 1 Past Surgical History Abdominal Surgery: Yes Appendectomy: Yes Gynecologic Surgery: Yes (hysterectomy) Hysterectomy: Yes Oral Surgery: Yes (TONSILECTOMY) Tonsillectomy: Yes Other Surgery: Yes (LT ARM SKIN CANCER) Social History Alcohol Use: Yes (RARELY) Tobacco Use: No Substance Use: No Allergies-Medications (Allergen,Severity, Reaction): Coded Allergies: codeine (Unverified Allergy, Severe, HIVES, SOB, 02/06/17) penicillin G (Unverified Allergy, Severe, HIVES, SOB, 02/06/17) Reported Meds & Prescriptions Reported Meds & Active Scripts Active Bactrim DS (Sulfamethoxazole-Trimethoprim) 800-160 Mg Tab 1 Tab PO BID Tramadol (Tramadol HCl) 50 Mg Tab 50 Mg PO Q6H PRN Zofran Odt (Ondansetron Odt) 4 Mg Tab 4 Mg SL Q6HR PRN Albuterol Neb (Albuterol Sulfate) 2.5 Mg/3 Ml Neb 2.5 Mg NEB TID NEB PRN Ventolin Hfa 18 GM Inh (Albuterol Sulfate) 90 Mcg/Act Aer 2 Puff INH Q4-6H PRN Reported Trazodone (Trazodone HCl) 100 Mg Tablet 200 Mg PO HS Clonazepam 1 Mg Tab 1 Mg PO TID Review of Systems Except as stated in HPI: all other systems reviewed are Neg Physical Exam Narrative GENERAL: Well-nourished, well-developed female in no acute distress. Afebrile. Ambulatory. SKIN: Focused skin assessment warm/dry. There is a 2 mm puncture wound to the left plantar foot without drainage or surrounding erythema. Mildly tender to palpation. HEAD: Normocephalic. EYES: No scleral icterus. No injection or drainage. NECK: Supple, trachea midline. No JVD or lymphadenopathy. CARDIOVASCULAR: Regular rate and rhythm without murmurs, gallops, or rubs. RESPIRATORY: Bilateral expiratory wheezes. No accessory muscle use. MUSCULOSKELETAL: No cyanosis, or edema. Full range motion of the foot. Data Data Last Documented VS Vital Signs Date Time Temp Pulse Resp B/P (MAP) Pulse Ox O2 Delivery O2 Flow Rate FiO2 02/18/17 13:05 99.0 77 20 143/71 (95) 97 Orders Orders Tetanus/Diphtheria Tox Adult (Tetanus/Di (02/18/17 13:30) MDM Medical Decision Making Medical Screen Exam Complete: Yes Emergency Medical Condition: Yes Medical Record Reviewed: Yes Differential Diagnosis Tetanus prophylaxis, puncture wound, infection, immunocompromise Narrative Course 57 year-old female presents to the emergency room requesting tetanus vaccination. Patient stepped on a nayely nail yesterday. It went through her flip flop. She was at [facility] receiving chemotherapy just prior to arrival when her oncologist, Dr. Schneider, recommended she come to the emergency room for a tetanus shot. Lexicomp and Up-to-date provide no contraindications to tetanus prophylaxis. Patient was given tetanus shot while in the ED. She' ll be discharged with prescription for Bactrim to cover for staph. There is a contraindication to prescribing ciprofloxacin as it causes QT prolongation with trazodone and Zofran. I talked to my attending physician, Dr. Urbano, who recommends just prescribing Bactrim. There is low suspicion for pseudomonas infection because patient was wearing flip-flops rather than tennis shoes. She was told to follow-up with her oncologist, with whom she has an appointment March 03. Told to return for worsening symptoms such as drainage, redness, worsening pain, fever, or chills. She understands and agrees to plan. Diagnosis Primary Impression: Puncture wound of plantar aspect of foot Qualified Codes: S91.332A - Puncture wound without foreign body, left foot, initial encounter Referrals: Oncologist Primary Care Physician Additional Instructions: Keep wound clean and dry. Wash several times daily with soap and water. Apply triple antibiotic ointment daily. Take Bactrim as directed, until gone. Follow up with a primary care physician. Return to emergency room for worsening symptoms, as discussed. Med/Other Pt SpecificInfo: Prescription(s) given Scripts Sulfamethoxazole-Trimethoprim (Bactrim DS) 800-160 Mg Tab 1 TAB PO BID for Infection, #14 TAB 0 Refills Prov: Gamal Urbano MD 02/18/17 Disposition: 01 DISCHARGE HOME Condition: Stable Krupa Lau Feb 18, 2017 13:38
== END 2017-02-18 13:56 | disposition home or self-care (01) ==
LOC: PHEFT 13:02
DX: S91.332A Puncture wound without foreign body, left foot, initial encounter (principal); W45.0XXA Nail entering through skin, initial encounter; C50.919 Malignant neoplasm of unspecified site of unspecified female breast; E78.00 Pure hypercholesterolemia, unspecified; I10 Essential (primary) hypertension; Z88.0 Allergy status to penicillin
CPT/HCPCS: 90471; 90714

== ENCOUNTER 2017-03-27 16:30 | Emergency (ER) | payer OTHER ==
[~2017-03-27] VITALS: Ht 165.1 cm; Wt 73.0 kg
[~2017-03-27 16:30] MED LIST changes: +BACT800T5 PO; +TRAZ100T10 PO; -TRAZ100T6 PO
[2017-03-27 16:44] VITALS: BP 128/59; PULSE 80; RESP 18; TEMP 98.3; O2SAT 98
== END 2017-03-27 17:47 | disposition left against medical advice (07) ==
LOC: PHED 16:30
DX: R10.9 Unspecified abdominal pain (principal)
CPT/HCPCS: 99281

== ENCOUNTER 2017-04-05 11:17 | Emergency (ER) | payer OTHER ==
[~2017-04-05] VITALS: Ht 165.1 cm; Wt 75.0 kg
[2017-04-05 11:21] VITALS: BP 142/64; PULSE 78; RESP 16; TEMP 98.3; O2SAT 98
--- NOTE | 2017-04-05 11:50 | PD ---
HPI Chief Complaint: Dizziness Time Seen by Provider: 11:50 Travel History International Travel<30 days: No Contact w/Intl Traveler<30days: No Traveled to known affect area: No History of Present Illness HPI 57 yo F complains of dizziness and nausea which started yesterday evening. Pt states she nearly fell to the floor while walking in her hallway at home however did not fall or lose consciousness. She denies chest pain and shortness of breath. She's had no fever and denies vomiting. Medical records show pt has hx breast cancer and is undergoing chemotherapy and recently underwent lumpectomy. PFSH Past Medical History Hx Anticoagulant Therapy: No Arthritis: Yes Asthma: Yes Anxiety: Yes Depression: Yes (ptsd) Cancer: Yes (SKIN, r breast cancer) Cardiovascular Problems: Yes High Cholesterol: Yes Chemotherapy: Yes COPD: Yes Diabetes: No Diminished Hearing: No Endocrine: No GERD: Yes Genitourinary: No Hypertension: Yes (states do not take meds) Immune Disorder: No Musculoskeletal: Yes (FX RIBS ) Psychiatric: Yes (PTSD) Reproductive: No Respiratory: Yes (copd) Immunizations Current: Yes Pneumonia: Yes Influenza Vaccination: Yes ?: Not Menopausal: Yes : 1 Para: 1 Past Surgical History Abdominal Surgery: Yes Appendectomy: Yes Gynecologic Surgery: Yes (hysterectomy) Hysterectomy: Yes Oral Surgery: Yes (TONSILECTOMY) Tonsillectomy: Yes Other Surgery: Yes (LT ARM SKIN CANCER, r breast lumpectomy) Social History Alcohol Use: Yes (RARELY) Tobacco Use: Yes (10 cigs a day) Substance Use: No Allergies-Medications (Allergen,Severity, Reaction): Coded Allergies: codeine (Unverified Allergy, Severe, HIVES, SOB, 04/05/17) penicillin G (Unverified Allergy, Severe, HIVES, SOB, 04/05/17) Reported Meds & Prescriptions Reported Meds & Active Scripts Active Albuterol Neb (Albuterol Sulfate) 2.5 Mg/3 Ml Neb 2.5 Mg NEB TID NEB PRN Ventolin Hfa 18 GM Inh (Albuterol Sulfate) 90 Mcg/Act Aer 2 Puff INH Q4-6H PRN Reported Trazodone (Trazodone HCl) 100 Mg Tablet 200 Mg PO HS Clonazepam 1 Mg Tab 1 Mg PO TID Review of Systems Except as stated in HPI: all other systems reviewed are Neg General / Constitutional: No: Fever Gastrointestinal: Positive: Nausea Physical Exam Narrative GENERAL: 57 yo F wnwd mild distress 2/2 pain, nausea and/or anxiety SKIN: Warm and dry. HEAD: Atraumatic. Normocephalic. Alopecia. EYES: EOMI NEURO: speaking sentences. CN III-XII normal. Moving all extremities. Data Data Last Documented VS Vital Signs Date Time Temp Pulse Resp B/P (MAP) Pulse Ox O2 Delivery O2 Flow Rate FiO2 04/05/17 11:37 97 Room Air 04/05/17 11:21 98.3 78 16 142/64 (90) VS reviewed MDM Medical Decision Making Medical Screen Exam Complete: Yes Emergency Medical Condition: Yes Medical Record Reviewed: Yes Differential Diagnosis vertigo peripheral, vertigo central, metabolic disarray Narrative Course Shortly following the initiation of the history of present illness the patient reported she would have [facility] gone to [facility] and elected to leave. It seems she was frustrated with reporting her past medical history to both the nursing staff and this physician. Pt demonstrated competence for independent decision making. All reasonable efforts to satisfy the patient's expectations failed and at that point she elected to leave against medical advice. Unfortunately this physician was unable to review the risks and alternatives of AMA discharge as the patient showed herself out. Involuntary restraint of the patient would have been a violation of her rights as a patient. Diagnosis Primary Impression: Left against medical advice Disposition: 07 AGAINST MEDICAL ADVICE Condition: Stable Yasmany Myers MD Apr 05, 2017 11:50
[2017-04-05 12:00] VITALS: BP 115/68
== END 2017-04-05 12:20 | disposition left against medical advice (07) ==
LOC: PHED 11:17
DX: R42 Dizziness and giddiness (principal); F17.210 Nicotine dependence, cigarettes, uncomplicated
CPT/HCPCS: 99281

== ENCOUNTER 2017-09-26 11:16 | Emergency (ER) | payer MEDICAID, OTHER ==
[~2017-09-26] VITALS: Ht 165.1 cm; Wt 74.9 kg
[~2017-09-26 11:16] MED LIST changes: -BACT800T5 PO; -TRAM50TA PO; -ZOFR4TAB3 SL
[2017-09-26 11:26] VITALS: BP 122/70; PULSE 84; RESP 18; TEMP 98.5; O2SAT 97
[2017-09-26] MEDS ORDERED: ANAS1TAB PO (11:49)
[2017-09-26] MEDS ORDERED: TRAZ100T10 PO (11:49)
[2017-09-26] MEDS ORDERED: OXYC1CAP PO (12:13)
--- NOTE | 2017-09-26 12:15 | PD ---
HPI Chief Complaint: Musculoskeletal Complaint Time Seen by Provider: 12:08 Travel History International Travel<30 days: No Contact w/Intl Traveler<30days: No Traveled to known affect area: No History of Present Illness HPI Patient presents with complaints of left shoulder pain. Undergoing treatment for breast cancer. Had an infusion yesterday with access via her port left upper chest. States she just installed an above ground pool by herself and after completion she noted the left shoulder pain. States she ran out of her pain medication last night. States she has muscle relaxers at home. Denies any misstep or fall. Aggravated with range of motion. Improves with rest. Denies any chest pain shortness of breath urinary or bowel symptoms. Denies any nausea vomiting diarrhea or fever. Smokes half pack per day. PFSH Past Medical History Hx Anticoagulant Therapy: No Arthritis: Yes Asthma: Yes Anxiety: Yes Depression: Yes (ptsd) Cancer: Yes (SKIN, r breast cancer) Cardiovascular Problems: Yes High Cholesterol: Yes Chemotherapy: Yes COPD: Yes Diabetes: No Diminished Hearing: No Endocrine: No GERD: Yes Genitourinary: No Hypertension: Yes (states do not take meds) Immune Disorder: No Musculoskeletal: Yes (FX RIBS ) Psychiatric: Yes (PTSD) Reproductive: No Respiratory: Yes (copd) Immunizations Current: Yes Pneumonia: Yes Tetanus Vaccination: < 5 Years Influenza Vaccination: Yes ?: Not Menopausal: Yes : 1 Para: 1 Past Surgical History Abdominal Surgery: Yes Appendectomy: Yes Gynecologic Surgery: Yes (hysterectomy) Hysterectomy: Yes Oral Surgery: Yes (TONSILECTOMY) Tonsillectomy: Yes Other Surgery: Yes (LT ARM SKIN CANCER, r breast lumpectomy) Social History Alcohol Use: Yes (RARELY) Tobacco Use: Yes (10 cigs a day) Substance Use: No Allergies-Medications (Allergen,Severity, Reaction): Coded Allergies: codeine (Unverified Allergy, Severe, HIVES, SOB, 09/26/17) penicillin G (Unverified Allergy, Severe, HIVES, SOB, 09/26/17) Reported Meds & Prescriptions Reported Meds & Active Scripts Active Albuterol Neb (Albuterol Sulfate) 2.5 Mg/3 Ml Neb 2.5 Mg NEB TID NEB PRN Ventolin Hfa 18 GM Inh (Albuterol Sulfate) 90 Mcg/Act Aer 2 Puff INH Q4-6H PRN Reported Trazodone (Trazodone HCl) 100 Mg Tablet 100 Mg PO HS Anastrozole 1 Mg Tab 1 Mg PO DAILY Trazodone (Trazodone HCl) 100 Mg Tablet 200 Mg PO HS Clonazepam 1 Mg Tab 1 Mg PO TID Review of Systems General / Constitutional: No: Fever Eyes: No: Visual changes HENT: No: Headaches Cardiovascular: No: Chest Pain or Discomfort Respiratory: No: Shortness of Breath Gastrointestinal: No: Abdominal Pain Genitourinary: No: Dysuria Musculoskeletal: Positive: Pain Skin: No Rash Neurologic: No: Weakness Psychiatric: No: Depression Endocrine: No: Polydipsia Hematologic/Lymphatic: No: Easy Bruising Physical Exam Narrative GENERAL: Well-nourished, well-developed patient. SKIN: Focused skin assessment warm/dry. HEAD: Normocephalic. EYES: No scleral icterus. No injection or drainage. NECK: Supple, trachea midline. No JVD or lymphadenopathy. CARDIOVASCULAR: Regular rate and rhythm without murmurs, gallops, or rubs. Left upper chest port is palpable without cellulitic change drainage or discharge Examination of the left shoulder reveals discomfort with range of motion. No erythema edema or bony deformity RESPIRATORY: Decreased breath sounds mild end expiratory wheeze. No accessory muscle use. GASTROINTESTINAL: Abdomen soft, non-tender, nondistended. MUSCULOSKELETAL: No cyanosis, or edema. BACK: Nontender without obvious deformity. No CVA tenderness. Data Data Last Documented VS Vital Signs Date Time Temp Pulse Resp B/P (MAP) Pulse Ox O2 Delivery O2 Flow Rate FiO2 /18 11:26 98.5 84 18 122/70 (87) 97 MDM Medical Decision Making Medical Screen Exam Complete: Yes Emergency Medical Condition: Yes Differential Diagnosis Shoulder strain, shoulder contusion, shoulder fracture, musculoskeletal pain Narrative Course Assessment plan discussed with patient and significant other at bedside. Diagnosis Primary Impression: Left shoulder pain Qualified Codes: M25.512 - Pain in left shoulder Patient Instructions: General Instructions Additional Instructions: Sling for comfort, gentle range of motion, ice after activity. Follow-up with PCP. Return to the emergency room with any onset of new symptoms. Med/Other Pt SpecificInfo: Prescription(s) given Scripts Oxycodone (Oxycodone) 5 Mg Cap 5 MG PO Q4H Y for PAIN, #15 CAP 0 Refills Prov: Farshad Clark MD 09/26/17 Disposition: 01 DISCHARGE HOME Condition: Good Farshad Clark MD September 26, 2017 12:14
== END 2017-09-26 12:50 | disposition home or self-care (01) ==
LOC: PHEFT 11:16 → PHED 12:50
DX: M25.512 Pain in left shoulder (principal); C50.911 Malignant neoplasm of unspecified site of right female breast; E78.00 Pure hypercholesterolemia, unspecified; F32.9 Major depressive disorder, single episode, unspecified; F43.10 Post-traumatic stress disorder, unspecified; I10 Essential (primary) hypertension; J44.9 Chronic obstructive pulmonary disease, unspecified; K21.9 Gastro-esophageal reflux disease without esophagitis; F17.210 Nicotine dependence, cigarettes, uncomplicated
CPT/HCPCS: 99283

== ENCOUNTER 2017-10-06 11:51 | Emergency (ER) | payer OTHER ==
[~2017-10-06 11:51] MED LIST changes: +ANAS1TAB PO; +OXYC1CAP PO
[2017-10-06 11:55] VITALS: BP 151/96; PULSE 86; RESP 16; TEMP 98.2; O2SAT 97
--- NOTE | 2017-10-06 13:06 | PD ---
HPI Chief Complaint: Skin Problem Time Seen by Provider: 12:12 Travel History International Travel<30 days: No Contact w/Intl Traveler<30days: No Traveled to known affect area: No History of Present Illness HPI 57-year-old female with breast cancer presents emergency department for evaluation of a lump on the right anterior axillary breast area that she noticed last night. Patient states that the area became painful last night and she is having difficulty lifting her arm because of the pain. Patient says the lesion is mild to moderate in severity, nonradiating. She is extremely concerned about the recurrence of her breast cancer. She denies fevers or chills. Denies any swelling or drainage. Says she has a history of adhesive capsulitis of the right shoulder feels this may be contributing. Says she tried to call her oncologist, Dr. Molina, however has not received a return phone call. PFSH Past Medical History Hx Anticoagulant Therapy: No Arthritis: Yes Asthma: Yes Anxiety: Yes Depression: Yes (ptsd) Cancer: Yes (SKIN, r breast cancer) Cardiovascular Problems: Yes High Cholesterol: Yes Chemotherapy: Yes (HX BREAST CA) COPD: Yes Diabetes: No Diminished Hearing: No Endocrine: No GERD: Yes Genitourinary: No Hypertension: Yes (states do not take meds) Immune Disorder: No Musculoskeletal: Yes (FX RIBS ) Psychiatric: Yes (PTSD) Reproductive: No Respiratory: Yes (copd) Immunizations Current: Yes Pneumonia: Yes ?: Not Menopausal: Yes : 1 Para: 1 Past Surgical History Abdominal Surgery: Yes Appendectomy: Yes Gynecologic Surgery: Yes (hysterectomy) Hysterectomy: Yes Oral Surgery: Yes (TONSILECTOMY) Tonsillectomy: Yes Other Surgery: Yes (LT ARM SKIN CANCER, r breast lumpectomy) Social History Alcohol Use: Yes (RARELY) Tobacco Use: Yes (10 cigs a day) Substance Use: No Allergies-Medications (Allergen,Severity, Reaction): Coded Allergies: codeine (Verified Allergy, Severe, HIVES, SOB, 10/06/17) penicillin G (Verified Allergy, Severe, HIVES, SOB, 10/06/17) Reported Meds & Prescriptions Reported Meds & Active Scripts Active Oxycodone (Oxycodone HCl) 5 Mg Cap 5 Mg PO Q8H PRN 3 Days Bactrim DS (Sulfamethoxazole-Trimethoprim) 800-160 Mg Tab 1 Tab PO BID Oxycodone (Oxycodone HCl) 5 Mg Cap 5 Mg PO Q4H PRN Albuterol Neb (Albuterol Sulfate) 2.5 Mg/3 Ml Neb 2.5 Mg NEB TID NEB PRN Ventolin Hfa 18 GM Inh (Albuterol Sulfate) 90 Mcg/Act Aer 2 Puff INH Q4-6H PRN Reported Trazodone (Trazodone HCl) 100 Mg Tablet 100 Mg PO HS Anastrozole 1 Mg Tab 1 Mg PO DAILY Clonazepam 1 Mg Tab 1 Mg PO TID Review of Systems Except as stated in HPI: all other systems reviewed are Neg Physical Exam Narrative GENERAL: Well developed, well-nourished, anxious and cantankerous SKIN: Focused skin assessment warm/dry. Right anterior axillary, 10 o'clock position from the nipple line, approximately 1 cm, round mobile, tender to palpation. No overlying edema or erythema. The cyst is at the distal portion of a healed scar HEAD: Atraumatic. Normocephalic. EYES: Pupils equal and round. No scleral icterus. No injection or drainage. ENT: No nasal bleeding or discharge. Mucous membranes pink and moist. NECK: Trachea midline. No JVD. No lymphadenopathy CARDIOVASCULAR: Regular rate and rhythm. No murmur appreciated. RESPIRATORY: No accessory muscle use. Clear to auscultation. Breath sounds equal bilaterally. GASTROINTESTINAL: Abdomen soft, non-tender, nondistended. Hepatic and splenic margins not palpable. MUSCULOSKELETAL: No obvious deformities. No clubbing. No cyanosis. No edema. Questionable enlarged lymph node to the right axilla NEUROLOGICAL: Awake and alert. No obvious cranial nerve deficits. Motor grossly within normal limits. Normal speech. PSYCHIATRIC: Appropriate mood and affect; insight and judgment normal. Data Data Last Documented VS Vital Signs Date Time Temp Pulse Resp B/P (MAP) Pulse Ox O2 Delivery O2 Flow Rate FiO2 10/06/17 17:08 72 18 140/75 (96) 96 21 10/06/17 11:55 98.2 Orders Orders Soft Tissue (10/06/17 ) Acetaminophen (Tylenol) (10/06/17 13:30) Ibuprofen (Motrin) (10/06/17 13:30) Oxycodone (Roxicodone) (10/06/17 14:45) Ed Discharge Order (10/06/17 16:43) [facility] Medical Decision Making Medical Screen Exam Complete: Yes Emergency Medical Condition: Yes Differential Diagnosis Right breast abscess, cyst, cellulitis, tumor Narrative Course 57y female presents to the ED for concern of a painful mass of the right beast for 2 days. US ordered to help characterize the mass. Last Impressions Soft Tissue Ultrasound 10/06/17 0000 Signed Impressions: Service Date/Time: Friday, October 06, 2017 13:40 - CONCLUSION: Complex hypoechoic irregularly marginated mass with linear extensions to the skin surface. The differential diagnosis would include breast carcinoma, clinically there is a history of right breast abscess which would also be in the differential diagnosis however diagnostic mammography and tissue sampling at that time if indicated may be necessary. Cristhian Flowers MD Note the patient was in the emergency department and extended by time while obtaining the ultrasound. Ibuprofen and oxycodone administered in the emergency department. Patient says she is unable to take Tylenol. I explained the findings of the ultrasound multiple times in multiple ways to the patient. Prior to departure, patient requested pain medication. States that she was out of her medication. I suspect that there may have been a malingering component to her visit today for pain medication although I do believe that the ultrasound warrants follow- up with her oncologist. I stressed this multiple times to her and her . Patient was very anxious during the explanation but she states understanding. Says she has a follow-up on Thursday. Pt will be discharged with Bactrim. Advised that she follow up with her oncologist as scheduled or no later than 1 week. She states understanding and will comply. Diagnosis Primary Impression: Breast mass in female Referrals: General Surgeon Oncologist Additional Instructions: Follow-up with the oncologist regarding the findings today. Take all medications as prescribed. Scripts Oxycodone (Oxycodone) 5 Mg Cap 5 MG PO Q8H Y for PAIN for 3 Days, #12 CAP 0 Refills Prov: Wild Gardner MD 10/06/17 Sulfamethoxazole-Trimethoprim (Bactrim DS) 800-160 Mg Tab 1 TAB PO BID for Infection, #14 TAB 0 Refills Prov: Wild Gardner MD 10/06/17 Disposition: 01 DISCHARGE HOME Condition: Stable Jessica Giraldo October 06, 2017 13:06
[2017-10-06] MEDS ORDERED: IBUPROFEN 600 MG TAB PO ONE (13:30)
[2017-10-06] MEDS ORDERED: ACETAMINOPHEN 500 MG CPLT PO ONE (13:30)
--- NOTE | 2017-10-06 16:31 | RADRPT ---
EXAM DATE/TIME: 10/06/2017 13:40 [facility] COMPARISON: No previous studies available for comparison. EXTERNAL COMPARISON : [facility], MAMMOGRAM POST, October 23, 2016, US GUIDED BREAST BIOPSY, RIGHT, October 23, 2016, [facility], US BREAST, RIGHT, October 13, 2016. INDICATIONS : Right breast abscess. MEDICAL HISTORY : Hypercholesterolemia. Carcinoma, breast. Arthritis. HTN. COPD. Asthma. Pneumonia. Dyspnea. GERD. PTSD . Anxiety. SURGICAL HISTORY : Tonsillectomy. Appendectomy. Hysterectomy. Chemotherapy. Right breast lumpectomy. Left arm skin cance r removed. ENCOUNTER: Initial ACUITY: 2 days PAIN SCORE: 9/10 LOCATION: Right breast. AREA EVALUATED: Right lateral breast. FINDINGS: Ultrasound performed of the right breast in the area of clinical concern and demonstrates an 11 clot 5 cm from the nipple a hypoechoic mass measuring 2.3 x 1.2 x 3.7 cm. Margins are irregular and there is no blood flow seen internally on color Doppler imaging. A few punctate echogenic foci are noted. F indings suggest slight overlying skin retraction. There does appear to be a linear hypoechoic extensi on to the skin surface. CONCLUSION: Complex hypoechoic irregularly marginated mass with linear extensions to the skin surface. The differ ential diagnosis would include breast carcinoma, clinically there is a history of right breast absces s which would also be in the differential diagnosis however diagnostic mammography and tissue samplin g at that time if indicated may be necessary. Critshian Flowers MD on October 06, 2017 at 16:26 Board Certified Radiologist. This report was verified electronically.
[2017-10-06] MEDS ORDERED: BACT800T5 PO (17:01)
[2017-10-06 17:08] VITALS: BP 140/75
[2017-10-06] MEDS ORDERED: OXYC1CAP PO (17:14)
== END 2017-10-06 17:18 | disposition home or self-care (01) ==
LOC: PHEFT 11:51
DX: N63.31 Unspecified lump in axillary tail of the right breast (principal); Z85.3 Personal history of malignant neoplasm of breast; Z85.828 Personal history of other malignant neoplasm of skin; F32.9 Major depressive disorder, single episode, unspecified; E78.00 Pure hypercholesterolemia, unspecified; I10 Essential (primary) hypertension; J44.9 Chronic obstructive pulmonary disease, unspecified; K21.9 Gastro-esophageal reflux disease without esophagitis; F17.210 Nicotine dependence, cigarettes, uncomplicated
CPT/HCPCS: 76999

== ENCOUNTER 2017-10-08 18:25 | Emergency (ER) | END 2017-10-08 20:25 | disposition left against medical advice (07) | DX: R07.9 Chest pain, unspecified (principal) ==